=== PATIENT | female | born 1955 | race Caucasian/White ===

== ENCOUNTER 2017-08-17 19:16 | Emergency (ER) | payer OTHER ==
[~2017-08-17] VITALS: Ht 160 cm; Wt 74.8 kg
[~2017-08-17 19:16] MED LIST: Cyclobenzaprine5 MG PO; IBUP800 PO; LIDOCAINE1 EACH TOP; Neurontin 300300 MG PO; PSEU120ER PO; Zovirax800 MG PO
[2017-08-17] MEDS ORDERED: Cyclobenzaprine5 MG PO (21:40)
[2017-08-17] MEDS ORDERED: IBUP400 PO (21:40)
== END 2017-08-17 21:58 | disposition home or self-care (01) ==
LOC: ER 19:16
DX: M54.5 Low back pain (principal); Z88.5 Allergy status to narcotic agent; Z79.899 Other long term (current) drug therapy; F17.200 Nicotine dependence, unspecified, uncomplicated
CPT/HCPCS: 72100; 96372; 99283; J1885

== ENCOUNTER 2018-01-02 11:09 | Emergency (ER) | payer OTHER ==
[~2018-01-02] VITALS: Ht 160 cm; Wt 77.1 kg
[~2018-01-02 11:09] MED LIST changes: +IBUP400 PO
[2018-01-02] MEDS ORDERED: ZADITOR5 ML LEFTEYE (11:31)
[2018-01-02] MEDS ORDERED: Monodox100 MG PO (11:37)
== END 2018-01-02 11:52 | disposition home or self-care (01) ==
LOC: ER 11:09
DX: L03.011 Cellulitis of right finger (principal); H10.10 Acute atopic conjunctivitis, unspecified eye; F17.210 Nicotine dependence, cigarettes, uncomplicated; Z88.5 Allergy status to narcotic agent; Z79.899 Other long term (current) drug therapy
CPT/HCPCS: 99282

== ENCOUNTER 2018-08-20 12:05 | Emergency (ER) | payer OTHER ==
[~2018-08-20] VITALS: Ht 160 cm; Wt 74.8 kg
[~2018-08-20 12:05] MED LIST changes: +Monodox100 MG PO; +ZADITOR5 ML LEFTEYE
[2018-08-20 12:32] LABS: Source, Urine Clean Catch
[2018-08-20 12:39] LABS: Bilirubin, Urine Neg (Neg); Blood, Urine 1+ (Neg); Glucose Qualitative, Urine Neg (Neg); Ketones, Urine Neg (Neg); Leukocyte Esterase, Urine 3+ (Neg); Nitrite, Urine Neg (Neg); Protein, Urine Neg (Neg); Urobilinogen, Urine NORM (Normal); pH, Urine 6.5 (5.0-8.0)
[2018-08-20 12:52] LABS: Appearance, Urine Clear (Clear); Color, Urine Yellow (P-Yellow); White Blood Cells, Urine 50-100 /hpf (0-5)
[2018-08-20 12:53] LABS: Bacteria Few /hpf; Squamous Epithelial Cells Few /hpf (Few)
[2018-08-20] MEDS ORDERED: CEPH500 PO (13:06)
[2018-08-20] MEDS ORDERED: Bactrim Ds Tab1 EACH PO (13:06)
== END 2018-08-20 13:09 | disposition home or self-care (01) ==
LOC: ER 12:05
PROVIDERS: Physician Assistant
DX: L03.011 Cellulitis of right finger (principal); F17.210 Nicotine dependence, cigarettes, uncomplicated; Z88.5 Allergy status to narcotic agent; Z79.899 Other long term (current) drug therapy
CPT/HCPCS: 10060; 81001; 87077; 87086; 87186; 99283-25

== ENCOUNTER 2018-08-24 10:37 | Observation (INO) | payer OTHER ==
[~2018-08-24] VITALS: Ht 160 cm; Wt 68.8 kg
[~2018-08-24 10:37] MED LIST changes: +Bactrim Ds Tab1 EACH PO; +CEPH500 PO
[2018-08-24 11:57] LABS: BASOPHILS ABSOLUTE AUTO 0.06 K/mm3 (0.00-0.23); BASOPHILS PERCENT AUTO 1 % (0-2); EOSINOPHILS ABSOLUTE AUTO 0.29 K/mm3 (0.00-0.68); EOSINOPHILS PERCENT AUTO 3 % (0-6); Hematocrit 42.6 % (33.0-51.0); Hemoglobin 13.9 g/dL (11.5-16.0); IMMATURE GRAN ABSOLUTE AUTO 0.04 K/mm3 (0.00-0.10); IMMATURE GRAN PERCENT AUTO 0 % (0-1); LYMPHOCYTES ABSOLUTE AUTO 3.29 K/mm3 (0.84-5.20); LYMPHOCYTES PERCENT AUTO 34 % (21-46); MONOCYTES ABSOLUTE AUTO 1.55 K/mm3 (0.16-1.47); MONOCYTES PERCENT AUTO 16 % (4-13); Mean Corpuscular HGB 29.4 pg (26.0-34.0); Mean Corpuscular HGB Conc 32.6 g/dL (31.5-36.5); Mean Corpuscular Volume 90 fL (80-100); Mean Platelet Volume 9.3 fL (9.1-12.4); NEUTROPHILS ABSOLUTE AUTO 4.53 K/mm3 (1.96-9.15); NEUTROPHILS PERCENT AUTO 46 % (41-73); Platelet Count 330 K/mm3 (150-400); RDW Coefficient Variation 13.4 % (11.7-14.2); RDW Standard Deviation 44.2 fL (35.1-46.3); Red Blood Cell Count 4.72 M/mm3 (3.80-5.20); White Blood Cell Count 9.76 K/mm3 (4.00-11.30)
[2018-08-24 12:23] LABS: Alanine Aminotransfer (ALT/SGP 46 U/L (12-78); Albumin, Blood 3.5 g/dL (3.4-5.0); Albumin/Globulin Ratio 0.7 (0.8-1.8); Alk Phos 164 U/L (50-136); Anion Gap 7 mmol/L (6-16); Aspartate Aminotrans (AST/SGOT 50 U/L (12-37); Bilirubin, Total 0.3 mg/dL (0.1-1.0); Blood Urea Nitrogen 21 mg/dL (8-24); Bun/Creatinine Ratio 23.9 (12.0-20.0); CO2, Blood 24 mmol/L (21-32); Calcium, Blood 8.7 mg/dL (8.5-10.1); Chloride, Blood 103 mmol/L (98-108); Creatinine, Blood 0.88 mg/dL (0.40-1.00); Glomerular Filtration Rate >60 (60-); Glucose, Blood 100 mg/dL (70-99); Potassium, Blood 4.3 mmol/L (3.5-5.5); Sodium, Blood 134 mmol/L (136-145); Total Protein, Blood 8.5 g/dL (6.4-8.2)
--- NOTE | 2018-08-24 15:06 | NUR ---
On 08/24/18 @2959 this patient gave this nursing center tutor verbal consent to access medical information necessary for care on 08/25/18 from [phone]
--- NOTE | 2018-08-24 22:24 | NUR ---
SANDWICHES PROVIDED TO PT AND SO AT BEDSIDE PER REQUEST. SAFETY MEASURES IN PLACE. WILL CONTINUE TO MONITOR.
--- NOTE | 2018-08-25 11:00 | NUR ---
PT LEFT ROOM, WALKING DOWN HALLWAY. I ASKED PT IF SHE WOULD BE RETURNING, SHE REPORTED YES. BOYFRIEND WAS STILL IN ROOM.
--- NOTE | 2018-08-25 19:42 | NUR ---
PT DC'D AMA AT APPROXIMATELY 1400 AFTER PT NEVER RETURNED TO ROOM, BOYFRIEND LEFT ROOM, AND THEY LEFT THEIR BELONGINGS BEHIND. DETERMINATION WAS MADE TO SIGN PT OUT AMA AFTER APPROXIMATELY 6 HOURS OF BEING GONE. 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
== END 2018-08-25 15:38 | disposition left against medical advice (07) ==
LOC: ER 10:37 → SURS 10:38
PROVIDERS: Physician Assistant; ADMIT Internal Medicine
DX: L03.011 Cellulitis of right finger (principal); J44.0 Chronic obstructive pulmonary disease with (acute) lower respiratory infection; J20.9 Acute bronchitis, unspecified; F17.210 Nicotine dependence, cigarettes, uncomplicated; M86.9 Osteomyelitis, unspecified; Z88.5 Allergy status to narcotic agent; Z79.899 Other long term (current) drug therapy
CPT/HCPCS: 36415; 73130; 80053; 85025; 94760; 96365; 96366; 96367; 99284-25; G0378; J0690; J3370; J7050

== ENCOUNTER 2019-02-21 23:19 | Emergency (ER) | payer OTHER ==
[~2019-02-21] VITALS: Ht 162.6 cm; Wt 68.0 kg
[2019-02-21] MEDS ORDERED: Bactrim Ds Tab1 EACH PO (23:39)
[2019-02-21] MEDS ORDERED: CEPH500 PO (23:39)
== END 2019-02-22 00:08 | disposition home or self-care (01) ==
LOC: ER 23:19
DX: L03.115 Cellulitis of right lower limb (principal); Z88.5 Allergy status to narcotic agent; F17.210 Nicotine dependence, cigarettes, uncomplicated
CPT/HCPCS: 99283

== ENCOUNTER 2019-04-11 12:27 | Emergency (ER) | payer OTHER ==
[~2019-04-11] VITALS: Ht 162.6 cm; Wt 68.0 kg
[2019-04-11] MEDS ORDERED: CEPH500 PO (14:05)
[2019-04-11] MEDS ORDERED: Mupirocin22 GM TOP (14:05)
== END 2019-04-11 14:08 | disposition home or self-care (01) ==
LOC: ER 12:27
DX: H60.11 Cellulitis of right external ear (principal); F17.210 Nicotine dependence, cigarettes, uncomplicated; Z88.5 Allergy status to narcotic agent
CPT/HCPCS: 99282

== ENCOUNTER → 2021-03-04 | Outpatient (CLI) | payer OTHER ==
[~2021-03-04] MED LIST changes: +Mupirocin22 GM TOP
[2021-03-04 14:25] LABS: BASOPHILS ABSOLUTE AUTO 0.09 K/mm3 (0.00-0.23); BASOPHILS PERCENT AUTO 1 % (0-2); EOSINOPHILS ABSOLUTE AUTO 0.56 K/mm3 (0.00-0.68); EOSINOPHILS PERCENT AUTO 5 % (0-6); Hematocrit 51.1 % (33.0-51.0); Hemoglobin 16.3 g/dL (11.5-16.0); IMMATURE GRAN ABSOLUTE AUTO 0.04 K/mm3 (0.00-0.10); IMMATURE GRAN PERCENT AUTO 0 % (0-1); LYMPHOCYTES PERCENT AUTO 27 % (21-46); MONOCYTES PERCENT AUTO 13 % (4-13); Mean Corpuscular HGB 29.2 pg (26.0-34.0); Mean Corpuscular HGB Conc 31.9 g/dL (31.5-36.5); Mean Corpuscular Volume 92 fL (80-100); Mean Platelet Volume 10.4 fL (9.1-12.4); NEUTROPHILS ABSOLUTE AUTO 5.62 K/mm3 (1.96-9.15); NEUTROPHILS PERCENT AUTO 54 % (41-73); Platelet Count 345 K/mm3 (150-400); RDW Coefficient Variation 14.2 % (11.7-14.2); RDW Standard Deviation 47.5 fL (35.1-46.3); Red Blood Cell Count 5.58 M/mm3 (3.80-5.20); White Blood Cell Count 10.41 K/mm3 (4.00-11.30)
[2021-03-04 15:23] LABS: Alanine Aminotransfer (ALT/SGP 49 U/L (12-78); Albumin, Blood 3.1 g/dL (3.4-5.0); Albumin/Globulin Ratio 0.5 (0.8-1.8); Alk Phos 263 U/L (50-136); Anion Gap 7 mmol/L (6-16); Aspartate Aminotrans (AST/SGOT 69 U/L (12-37); Bilirubin, Total 0.3 mg/dL (0.1-1.0); Blood Urea Nitrogen 16 mg/dL (8-24); Bun/Creatinine Ratio 25.3 (12.0-20.0); CO2, Blood 26 mmol/L (21-32); Calcium, Blood 9.7 mg/dL (8.5-10.1); Chloride, Blood 101 mmol/L (98-108); Creatinine, Blood 0.63 mg/dL (0.40-1.00); Globulin, Blood 6.8 g/dL (2.2-4.0); Glomerular Filtration Rate >60 (60-); Glucose, Blood 81 mg/dL (70-99); Potassium, Blood 4.3 mmol/L (3.5-5.5); Sodium, Blood 134 mmol/L (136-145); Total Protein, Blood 9.9 g/dL (6.4-8.2)
== END | disposition home or self-care (01) ==
LOC: LAB 08:20 → LAB SHORT 08:20
PROVIDERS: Physician Assistant
DX: I95.89 Other hypotension (principal); J44.9 Chronic obstructive pulmonary disease, unspecified
CPT/HCPCS: 80053; 85025